=== PATIENT | female | born 1960 | race African-American/Black ===

== ENCOUNTER 2016-08-28 14:42 | Emergency (ER) | payer OTHER ==
[~2016-08-28 14:42] MED LIST: ATORVASTATIN CA10 MG PO; FLEXERIL10 MG PO; METFORMIN HCL500 MG PO; ROBITUSSIN W/CO10 ML PO; TESSALON PERLE100 MG PO; TYLENOL #31 TAB PO; ZITHROMAX500 MG PO
--- NOTE | 2016-08-28 15:00 | ED PSYCHIATRIC COMPLAINT ---
History of Present Illness General Chief Complaint: Psychiatric Related Complaint Stated Complaint: BIBA +SI Source: patient Exam Limitations: no limitations Vital Signs & Intake/Output Vital Signs & Intake/Output Vital Signs Date Time Temp Pulse Resp B/P B/P Pulse O2 O2 Flow FiO2 Mean Ox Delivery Rate 08/29 0941 97.2 90 18 125/65 95 Room Air 08/29 0611 97.2 87 20 125/72 95 Room Air 08/28 1556 94 18 122/59 97 Room Air Room Air 08/28 1451 98.6 107 20 155/95 96 Room Air ED Intake and Output 08/29 0000 08/28 1200 Intake Total Output Total Balance Patient 220 lb Weight Weight Estimated Measurement Method Allergies Coded Allergies: NO KNOWN ALLERGIES (03/01/14) Reconcile Medications Oxycodone HCl 5 MG TABLET 1 TAB PO 4XDP PAIN CONTROL (Reported) Paliperidone (Invega) 3 MG TAB.ER.24 1 TAB PO DAILY MENTAL HEALTH (Reported) Zolpidem Tartrate 10 MG TABLET 1 TAB PO QPMP SLEEP HELP (Reported) Triage Note: BIBA ON PEER AFTER PATIENT CALLED SISTER AND MADE STATEMENTS ABOUT NOT HAVING A LIFE AND WANTING IT ALL TO END. REPORTED A PLAN TO KILL SELF ON [employer]IVE, STATING SHE JUST NEEDS TO BE DRUNK ENOUGH TO HAVE THE STRENGTH TO GO THROUGH WITH IT. ARRIVES INTOXICATED AND EVASIVE OF ANSWERING QUESTIONS, UNABLE TO QUANTIFY BUT REPORTS MIX OF VODKA AND BEER TODAY. PT WAS RECENTLY DIAGNOSED WITH PSYCHOSIS AND PRESCRIBED PSYCHOTROPIC MEDS BUT STOPPED TAKING THEM 2 WEEKS AGO BECAUSE THEY WERE NOT HELPING HER. ARRIVES DOWNCAST, WITHDRAWN, GUARDED AND DEFENSIVE WITH POOR INSIGHT INTO ILLNESS. TO ROOM 14 ON ARRIVAL AND SECURITY CALLED FOR WANDING AND CHANGING. PT RESISTANT TO THIS PROCESS AND EDUCATED ON HOSPITAL POLICIES. DEMONSTRATES BEHAVIORAL CONTROL AT THIS TIME. DENIES OTHER ILLICIT DRUG USE. DENIES OTHER SIGNIFICANT HEALTH HX ASIDE FROM L WRIST SX AND PRESCRIBED USE OF NARCOTICS. AAOX3 AND SLIGHTLY LETHARGIC. - [place] Triage Nurses Notes Reviewed? yes HPI: Patient presents for evaluation of depression with possible suicide ideation. According to the police sergeant precinct accompanying the patient to the emergency department, she was saying goodbye to family members, including her sister who subsequently contacted 911. Patient states that she feels like she will have a "nervous breakdown". She states she doesn't feel like a woman because she "has no Legacy". Although she denies any intent to herself she stated that she drank alcohol today (the first time in 5 years) because she needed the coverage to "do something". She would not specify what that "something" was. (DAYANARA ALMEIDA,CASSIDY Momin) Past History Travel History Traveled to [place] past 21 day No Medical History Any Pertinent Medical History? see below for history Neurological: NONE EENT: NONE Cardiovascular: hypertension Respiratory: NONE Gastrointestinal: NONE Hepatic: NONE Renal: NONE Musculoskeletal: shoulder strain Psychiatric: schizo affective disorder (per old records) Endocrine: diabetes Blood Disorders: NONE Cancer(s): NONE DRUGLESS DOCTOR/Reproductive: NONE Pneumonia Vaccine: 01/18/13 Influenza Vaccine: 01/01/10 Surgical History Surgical History: non-contributory Psychosocial History Who do you live with Spouse Services at Home None What is your primary language Monegasque Tobacco Use: Cognitive Impairment Family History Family History, If Any: FATHER Relation not specified for: FH: diabetes mellitus Hx Contributory? No (DAYANARA ALMEIDA,CASSIDY Momin) Review of Systems Review of Systems Constitutional: Reports: no symptoms. EENTM: Reports: no symptoms. Respiratory: Reports: no symptoms. Cardiovascular: Reports: no symptoms. GI: Reports: no symptoms. Genitourinary: Reports: no symptoms. Musculoskeletal: Reports: no symptoms. Skin: Reports: no symptoms. Neurological/Psychological: Reports: see HPI. Hematologic/Endocrine: Reports: no symptoms. Immunologic/Allergic: Reports: no symptoms. All Other Systems: Reviewed and Negative (DAYANARA ALMEIDA,CASSIDY Momin) Physical Exam Physical Exam General Appearance: SEE BELOW Neurological/Psychiatric: SEE BELOW Comments: General: Alert, calm, cooperative Head: Normocephalic, atraumatic Eyes: Normal inspection, no nystagmus, EOMI Ears: Normal inspection Nose: Normal inspection Throat: Moist mucosa Neck: Supple, no goiter Heart: Regular rate and rhythm, no murmurs rubs or gallops Lungs: Clear to auscultation bilaterally with good air entry Abdomen: Soft nontender nondistended, normal bowel sounds Chest: Nontender Extremities: Normal range of motion grossly, mild tremors present, no cyanosis clubbing or edema of the upper extremities Neurologic: cranial nerves II through XII grossly intact, speech clear, gait normal Psychiatric: No apparent delusions or hallucinations, no pressured speech or thought blocking, emotionally labile with frequent weeping SAD PERSONS Done? DEFERRED TO CRISIS (DAYANARA ALMEIDA,CASSIDY Momin) Progress Differential Diagnosis: DEPRESSION, SUICIDE IDEATION Plan of Care: Orders Procedure Date/time Status Regular Diet 08/29 B Active Continuous Observation Monitor 08/29 1900 Active Continuous Observation Monitor 08/29 1500 Active Continuous Observation Monitor 08/29 1100 Active Continuous Observation Monitor 08/29 0700 Active Continuous Observation Monitor 08/28 1446 Active URINE DRUGS OF ABUSE 08/28 144 Complete URINALYSIS 08/28 144 Complete ETHANOL 08/28 1446 Complete COMPREHENSIVE METABOLIC PANEL 08/28 144 Complete CBC WITHOUT DIFFERENTIAL 08/28 144 Complete ED CRISIS PSYCH CONSULT 08/28 1446 Active Current Medications Sig/Fortino Start time Last Medication Dose Stop Time Status Admin Risperidone 2 MG QPM 08/290 UNVr 08/28 (Risperidone) 2300 Laboratory Tests 08/28/16 1523: Urine Opiates Screen < 100.00, Methadone Screen < 40, Barbiturate Screen < 60, Ur Phencyclidine Scrn < 6.00, Amphetamines Screen 129, U Benzodiazepines Scrn < 85, Urine Cocaine Screen < 50, Urine Cannabis Screen < 5.00, Urine Color YEL, Urine Clarity CLEAR, Urine pH 6.0, Ur Specific [place] <= 1.005, Urine Protein NEG, Urine Ketones NEG, Urine Nitrite NEG, Urine Bilirubin NEG, Urine Urobilinogen 0.2, Ur Leukocyte Esterase NEG, Ur Microscopic EXAM NOT REQUIRED, Urine Hemoglobin NEG, Urine Glucose NEG 08/28/16 1520: Anion Gap 18 H, Estimated GFR > 60, BUN/Creatinine Ratio 11.4, Glucose 172 H, Calcium 9.9, Total Bilirubin 0.4, AST 30, ALT 56 H, Alkaline Phosphatase 73, Total Protein 8.1, Albumin 4.8, Globulin 3.3, Albumin/Globulin Ratio 1.5, CBC w Diff NO MAN DIFF REQ, RBC 4.98, MCV 85.5, MCH 28.0, RDW 15.8 H, MPV 9.0, Gran % 60.4, Lymphocytes % 35.4, Monocytes % 3.3, Eosinophils % 0.6, Basophils % 0.3, Absolute Granulocytes 5.3, Absolute Lymphocytes 3.1, Absolute Monocytes 0.3, Absolute Eosinophils 0.1, Absolute Basophils 0, PUBS MCHC 32.7 L, Serum Alcohol 142.0 Comments: 08/28/2016 7:17:32 PM patient signed out to Dr. Aquino at shift mold chang[employer]. (DAYANARA ALMEIDA,CASSIDY Momin) Hand-Off Endorsed To: EDUARDO ROBERTS MD Endorsed Time: 0700 Pending: consult (LUCIAN ALMEIDA,KAREN Griffin) Comments: Cleared by psychiatry for discharge. (EDUARDO ROBERTS MD) Departure Departure Condition: Stable Clinical Impression Primary Impression: Depression, major, severe recurrence Qualifiers: Psychotic features: without psychotic features Qualified Code: F33.2 - Major depressive disorder, recurrent severe without psychotic features Secondary Impressions: Alcohol intoxication Qualifiers: Complication of substance-induced condition: uncomplicated Qualified Code: F10.920 - Alcohol use, unspecified with intoxication, uncomplicated Metabolic acidosis due to ingestion of drugs or chemicals Referrals: KANDACE GARCIA (PCP/Family) Departure Forms: Customer Survey General Discharge Information (DAYANARA ALMEIDA,CASSIDY Momin) Departure Time of Disposition: 0946 Disposition: HOME OR SELF CARE Additional Instructions: Follow up with the recommendations of the psychiatric social worker supervisor. (EDUARDO ROBERTS MD)
[2016-08-28 15:45] LABS: ABSOLUTE BASOPHIL COUNT 0 /CUMM (0.0-0.2); ABSOLUTE EOSINOPHIL COUNT 0.1 /CUMM (0.0-0.7); ABSOLUTE GRANULOCYTE CT 5.3 /CUMM (1.4-6.5); ABSOLUTE LYMPH COUNT 3.1 /CUMM (1.2-3.4); ABSOLUTE MONOCYTE COUNT 0.3 /CUMM (0.10-0.60); BASOPHIL % 0.3 % (0.0-2.0); EOSINOPHIL % 0.6 % (0-5); GRANULOCYTE % 60.4 % (42.2-75.2); HEMATOCRIT 42.5 % (37-47); MEAN CORPUSCULAR HGB CONC 32.7 G/DL (33.0-37.0); MEAN CORPUSCULAR VOLUME 85.5 FL (81.0-99.0); PLATELET COUNT 337 /CUMM (130-400); RBC DISTRIBUTION WIDTH 15.8 % (11.5-14.5); RED BLOOD CELL CT 4.98 /CUMM (4.20-5.40); WHITE BLOOD CELL COUNT 8.7 /CUMM (4.8-10.8)
[2016-08-28] MEDS ORDERED: INVEGA3 MG PO (15:59)
[2016-08-28] MEDS ORDERED: OXYCODONE HCL5 M1 PO (16:00)
[2016-08-28] MEDS ORDERED: ZOLPIDEM TARTRA10 M1 PO (16:01)
--- NOTE | 2016-08-28 18:41 | ED PSYCH CRISIS CONSULTATION ---
See Addendum Crisis Consult Basic Assessment Date of Consult: 08/28/16 Responsible Person/Accompanied By: CONSUELO Insurance Authorization: Insurance #1: Insurance name: ODALIS ANTHONY Phone number: Policy number: [id number] Group number: Authorization number: ED Provider: Patient's ED Provider: CASSIDY NICHOLE MD Primary Care Physician: Patient's PCP: KANDACE GARCIA PCP's Current Psychiatrist: [facility] Dr. Washburn Chief Complaint: Psychiatric Related Complaint Patient's Quote: "I was drinking and talked about not wanting to live" Present Illness: Pt is a 55 year old female arriving to ER after she was intoxicated and called her sister telling her she wanted to , and she was crying uncontrollably over the phone. Her sister called 911. upon evaluation pt reports she stopped her psych meds "Invega" 2 weeks ago, because "its not working", pt is seen by Dr. Washburn at [facility], I inquired did you try talking with him first prior to stopping medication, she stated she had her dose changed a few times, and it still wasnt helping. Pt reports she still hears voices, they arent currently causing her distress, not command. Pt denies si/hi. Pt states she "wants to go home", she is laying in bed, eyes closed becasue she complained of light being too rbight, and state she hadn't had a drink in a few years, but was feeling really down so she did, and it made things worse. Pt lives alone, her [facility] support is the sister I spoke with, and the person who called 911 "Lashell ". Pt's last admission to [facility] was in 2013, for an exacerbation of command type hallucinations and suicidality. Pt reports she is expected to see Dr. Washburn in September but could not recall appointment. She is negative for substances. Her BAL was 146, upon admission. Patient's Address: [address] [place] [id number] Other Phone Number: Who Do You Live With? Patient/Self Family/Informants Interviewed: Lashell, "she was having a bad days he probably needs to stay the night and can be Allergies - Coded Allergies: NO KNOWN ALLERGIES (03/01/14) Current Medications - Scheduled Medications Oxycodone HCl 5 MG TABLET 1 TAB PO 4XDP PAIN CONTROL #60 (Reported) Entered as Reported by MONTSERRAT PATRICK on 08/28/16 1600 Paliperidone (Invega) 3 MG TAB.ER.24 1 TAB PO DAILY MENTAL HEALTH #30 ( Reported) Entered as Reported by MONTSERRAT PATRICK on 08/28/16 1559 Zolpidem Tartrate 10 MG TABLET 1 TAB PO QPMP SLEEP HELP #30 (Reported) Entered as Reported by MONTSERRAT PATRICK on 08/28/16 1601 Laboratory Results: Laboratory Tests 08/28/16 1523: Urine Opiates Screen < 100.00, Methadone Screen < 40, Barbiturate Screen < 60, Ur Phencyclidine Scrn < 6.00, Amphetamines Screen 129, U Benzodiazepines Scrn < 85, Urine Cocaine Screen < 50, Urine Cannabis Screen < 5.00, Urine Color YEL, Urine Clarity CLEAR, Urine pH 6.0, Ur Specific [place] <= 1.005, Urine Protein NEG, Urine Ketones NEG, Urine Nitrite NEG, Urine Bilirubin NEG, Urine Urobilinogen 0.2, Ur Leukocyte Esterase NEG, Ur Microscopic EXAM NOT REQUIRED, Urine Hemoglobin NEG, Urine Glucose NEG 08/28/16 1520: Anion Gap 18 H, Estimated GFR > 60, BUN/Creatinine Ratio 11.4, Glucose 172 H, Calcium 9.9, Total Bilirubin 0.4, AST 30, ALT 56 H, Alkaline Phosphatase 73, Total Protein 8.1, Albumin 4.8, Globulin 3.3, Albumin/Globulin Ratio 1.5, CBC w Diff NO MAN DIFF REQ, RBC 4.98, MCV 85.5, MCH 28.0, RDW 15.8 H, MPV 9.0, Gran % 60.4, Lymphocytes % 35.4, Monocytes % 3.3, Eosinophils % 0.6, Basophils % 0.3, Absolute Granulocytes 5.3, Absolute Lymphocytes 3.1, Absolute Monocytes 0.3, Absolute Eosinophils 0.1, Absolute Basophils 0, PUBS MCHC 32.7 L, Serum Alcohol 142.0 Past History Past Medical History Neurological: NONE EENT: NONE Cardiovascular: hypertension Respiratory: NONE Gastrointestinal: NONE Hepatic: NONE Renal: NONE Musculoskeletal: shoulder strain Psychiatric: schizo affective disorder (per old records) Endocrine: diabetes Blood Disorders: NONE Cancer(s): NONE SURVEILLANCE MANAGER/Reproductive: NONE Past Surgical History Surgical History: non-contributory Psychosocial History Strengths/Capabilities: Connected to care, supportive family, and lives on her own Psychiatric Treatment History Psych Treatment Psychiatric Treatment Yes Inpatient Treatment Yes Outpatient Treatment Yes Location of Treatment CPS/ CARE Reason for Treatment schizoaffective D/O ah/ si Dates of Treatment last admit 2013, currently with CARE Response to Treatment unknown Diagnosis by History: schizoaffective D/O Substance Use/Abuse History Drug Use/Abuse Substances Used/Abused Yes Substance Used/Abused Alcohol First Use unknown Last Used today How much used/taken some vodka and beer How often today For how long hasnt drank since 5 years ago Route of use oral Substance Abuse Treatment Substance Abuse Treatment Past Substance Abuse [place] No Current Mental Status Mental Status Orientation: Person, Place, Situation Affect: Flat Speech: Evasive, Soft Neuro-vegetative: Concentration Poor, Loss of Interest, Sleep Disturbance Appearance Appearance- Dress/Hygiene: laying down,appropriate Behaviors Thought Process: Disorganized Thought Content: WNL Memory: WNL Insight: Fair SI/HI Risk Assessment Past Suicidal Ideation/Attempts Yes Current Suicidal Ideation/Att Yes Past Homicidal Ideation/Att: No Current Homicidal Ideation/Attempts No Degree of Intent: None, Pt denies currently Risk Factors: history of suicide atmpts, SA/MH hospitalized, lives alone, limited support Lethality Ratin PTSD Checklist PTSD Done? patient declined ED Management Sitter: Yes Restraints: No DSM5/PS Stressors/Medical Prob Diagnosis' (DSM 5, Stressors, Medical): Alcohol D/O F 10.20 moderate Schizoaffective D/O depressed F 25.1 Current GAF: 30 Departure Disposition Psych Medical Clearance Date: 08/28/16 Medically Cleared at: 0 Time Started: 1829 Time Ended: 1929 Psychiatrist Consulted: Sawyer Macias Date Disposition Established: 08/28/16 Time Disposition Established: 1929 Plan for Disposition - Modality: Re-eval Follow-up Appt Date: 08/29/16 Rationale for Disposition: Per Dr. Macias pt to be held over for further eval, for possible admission or referral to current providers, nona gomez pt denies si, but it is unclear this shift, if she is stable for discharge. Referrals SHARON GAY,KANDACE WONG (PCP/Family)
[2016-08-29 09:41] VITALS: BP 125/65
--- NOTE | 2016-08-29 13:32 | ED PSYCHIATRIST/APRN CONSULT ---
Psychiatrist/SPECIAL DEPUTY SHERIFF ED Consult Assessment and Plan: I reviewed Patrick's ED and Crisis Notes I discussed case with Lj from Crisis I interviewed the patient in her room in Crisis Findings: 55-year-old female who was brought in to the ED last evening after she called her sister while intoxicated with alcohol and told sister she wanted to , she was described as crying uncontrollably over the phone. Mental Status Today 08/29/2016: Patrick was lying quitely in her bed. She was easily arousable, sat at the edge of bed and showed good eye contact. She was alert and oriented. She was calm, cooperative and pleasant. She reported that she only drank yesterday, she denied withdrawal symptoms and did not show withdrawal signs. She reported that she has been seeing Dr. Washburn at [facility] and attending their Monday group. She denied feeling despondent or hopeless today, she did smile appropriately, she denied wishing or thinking of suicide. She attributed what happended yesterday to to the alcohol. She was coherent, there were no delusions and no thoughts disorder. She denied hallucinations today. There was no evidence of memory impairment. She seemed to process information without problems. Assessment: 55-year-old who voiced wanting to yesterday while inebriated, she seemed much better today, no longer voicing thoughts of suicide and desires to go home and follow up with [facility]. Tomorrow is her group and she says Dr. Washburn works on Wednesdays and believes she can see him on Monday. Recommendations: No need for inpatient admission. Patient may be discharged and follow up with [facility]
== END 2016-08-29 10:11 ==
LOC: ERH 14:42
PROVIDERS: Emergency Medicine
DX: F33.2 Major depressive disorder, recurrent severe without psychotic features (principal); F10.129 Alcohol abuse with intoxication, unspecified; E87.2 Acidosis
CPT/HCPCS: 80307; 81003; G0463; G0480